=== PATIENT | female | born 1950 | race American Indian/Alaskan Native ===

== ENCOUNTER 2021-10-11 16:28 | Emergency (ER) | payer OTHER, MEDICARE ==
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
[2021-10-12 00:08] VITALS: BP 146/80
== END 2021-10-12 00:08 | disposition home or self-care (01) ==
LOC: ED 16:28
DX: M54.2 Cervicalgia (principal); R06.02 Shortness of breath; I10 Essential (primary) hypertension; E11.9 Type 2 diabetes mellitus without complications; M19.90 Unspecified osteoarthritis, unspecified site; J45.909 Unspecified asthma, uncomplicated; Z88.2 Allergy status to sulfonamides; Z88.8 Allergy status to other drugs, medicaments and biological substances; Z79.899 Other long term (current) drug therapy
CPT/HCPCS: 99282